=== PATIENT | female | born 1970 | race Caucasian/White ===

== ENCOUNTER 2016-08-22 15:04 | Emergency (ER) | payer MEDICAID ==
[~2016-08-22] VITALS: Ht 121.9 cm; Wt 90.5 kg
[2016-08-22 15:06] VITALS: Ht 121.9 cm; Wt 90.5 kg
--- NOTE | 2016-08-22 16:04 | ERD ---
ER Documentation Chief Complaint Date/Time DATE: 08/22/16 TIME: 16:01 Chief Complaint SENT HERE BY PMD FOR FURTHER EVALUATION HIGH GLUCOSE AND KETONES IN URINE HPI 45-year-old female otherwise healthy, no prior history of diabetes was sent in by her primary care physician for further evaluation of a glucose of 196 and positive ketones in the urine in the office just prior to arrival. The patient was going in for a physical examination, requesting a mammogram and she subsequently was found to have ketones in the urine. She has not had any dizziness, polyuria, polydipsia, nausea, vomiting, diarrhea or abdominal pain. ROS All systems reviewed and are negative except as per history of present illness. Medications Home Meds Active Scripts Cephalexin* (Keflex*) 500 Mg Capsule, 500 MG PO TID for 7 Days, CAP Prov:BALAJI RAMOS PA-C 08/22/16 PMhx/Soc Medical and Surgical Hx: pt denies Medical Hx, pt denies Surgical Hx Hx Alcohol Use: No Hx Substance Use: No Hx Tobacco Use: No Physical Exam Vitals Vital Signs Date Time Temp Pulse Resp B/P Pulse Ox O2 Delivery O2 Flow Rate FiO2 08/22/16 15:06 97.6 72 18 141/79 97 Physical Exam General: Well-developed, well-nourished. The patient appears in no acute distress. HEENT: Head is normocephalic, atraumatic. No scleral icterus. Pupils are equal , round, and reactive. Oral mucous membranes are moist. No pharyngeal erythema. Neck: Supple. Nontender. Lungs: Clear to auscultation. Normal air movement. Heart: Regular rate and rhythm. S1 and S2 are normal. No murmurs, gallops, or rubs. Abdomen: Soft, nontender, nondistended. Bowel sounds are normoactive. Extremities: No clubbing or cyanosis. Normal pulses. Moving extremities x 4. No weakness. Neurologic: Alert and oriented 3. No focal deficits. Skin: Normal turgor. No rash or lesions. Result Diagram: 08/22/16 1629 08/22/16 1629 Results 24 hrs Laboratory Tests Test 08/22/16 15:12 08/22/16 16:25 08/22/16 16:29 Bedside Glucose 196mg/dL 191mg/dL Anion Gap 16 Basophils # 0.010^3/ul Basophils % 0.2% Blood Urea Nitrogen 9mg/dl Calcium Level 9.2mg/dl Carbon Dioxide Level 28mmol/L Chloride Level 100mmol/L Creatinine 0.50mg/dl Eosinophils # 0.210^3/ul Eosinophils % 1.6% Glucose Level 201mg/dl Hematocrit 42.4% Hemoglobin 14.3g/dl Lymphocytes # 3.110^3/ul Lymphocytes % 28.3% Mean Corpuscular Hemoglobin 31.2pg Mean Corpuscular Hemoglobin Concent 33.8g/dl Mean Corpuscular Volume 92.3fl Mean Platelet Volume 9.1fl Monocytes # 0.510^3/ul Monocytes % 4.4% Neutrophils # 7.310^3/ul Neutrophils % 65.5% Nucleated Red Blood Cells # 0.010^3/ul Nucleated Red Blood Cells % 0.0/100WBC Platelet Count 88150^3/UL Potassium Level 4.2mmol/L Red Blood Count 4.5910^6/ul Red Cell Distribution Width 12.2% Sodium Level 140mmol/L Urine Bacteria OCCASIONAL Urine Bilirubin NEGATIVE Urine Clarity CLEAR Urine Color LT. YELLOW Urine Glucose NEGATIVE% Urine Hemoglobin TRACE Urine Ketones 15 Urine Leukocyte Esterase 1+ Urine Microscopic RBC 0-2/HPF Urine Microscopic WBC 10-25/HPF Urine Nitrite NEGATIVE Urine Specific [place] 1.010 Urine Squamous Epithelial Cells MODERATE Urine Total Protein NEGATIVE Urine Urobilinogen 0.2 E.U./dL Urine WBC Clumps OCCASIONAL Urine pH 5.5 White Blood Count 11.110^3/ul Procedures/MDM ED course: Patient was seen and evaluated, labs and urine were obtained. MDM: 45-year-old female comes in with elevated blood sugar as well as ketones and was seen in the clinic today per, she had blood work done here, she does have hyperglycemia however there is no evidence of acidosis. She does not have evidence of dehydration, is clinically well-appearing. This patient does have a urinary tract infection will be antibiotics for this, has been asked to increase hydration. She was given a copy of her labs and urine test results and has been asked to follow-up with a primary care doctor within the next week for recheck of her sugar that is fasting. Departure Diagnosis: Primary Impression: Hyperglycemia Additional Impression: UTI (urinary tract infection) Condition: BALAJI Kim PA-C Aug 22, 2016 16:04
[2016-08-22 17:06] LABS: BASOPHILS % 0.2 % (0.0-2.0); EOSINOPHILS # 0.2 10^3/ul (0.0-0.5); EOSINOPHILS % 1.6 % (0.0-7.0); HEMATOCRIT 42.4 % (37.0-47.0); HEMOGLOBIN 14.3 g/dl (12.0-16.0); LYMPHOCYTES # 3.1 10^3/ul (0.8-2.9); LYMPHOCYTES % 28.3 % (15.0-51.0); MEAN CORPUSCULAR HEMOGLOBIN 31.2 pg (29.0-33.0); MEAN CORPUSCULAR HGB CONC 33.8 g/dl (32.0-37.0); MEAN CORPUSCULAR VOLUME 92.3 fl (82.0-101.0); MEAN PLATELET VOLUME 9.1 fl (7.4-10.4); MONOCYTE # 0.5 10^3/ul (0.3-0.9); MONOCYTES % 4.4 % (0.0-11.0); NEUTROPHIL # 7.3 10^3/ul (1.6-7.5); NEUTROPHILS % 65.5 % (39.0-77.0); PLATELET COUNT 277 10^3/UL (140-440); RED BLOOD COUNT 4.59 10^6/ul (4.20-5.40); RED CELL DISTRIBUTION WIDTH 12.2 % (11.5-14.5); UNCORRECTED WBC 11.1 10^3/ul (4.8-10.8); WHITE BLOOD COUNT 11.1 10^3/ul (4.8-10.8)
[2016-08-22 17:11] LABS: POTASSIUM 4.2 mmol/L (3.5-5.1)
[2016-08-22 17:13] LABS: CREATININE 0.5 mg/dl (0.44-1.00)
[2016-08-22 17:14] LABS: CALCIUM 9.2 mg/dl (8.4-10.2)
[2016-08-22 17:18] LABS: ADD UMIC YES; URINE BILIRUBIN (Dip) NEGATIVE (NEGATIVE); URINE BLOOD (Dip) TRACE (NEGATIVE); URINE COLOR LT. YELLOW (YELLOW); URINE GLUCOSE (Dip) NEGATIVE (NEGATIVE); URINE KETONES (Dip) 15 (NEGATIVE); URINE LEUKOCYTE ESTERASE (Dip) 1+ (NEGATIVE); URINE NITRITE (Dip) NEGATIVE (NEGATIVE); URINE TOTAL PROTEIN (Dip) NEGATIVE (NEGATIVE); URINE UROBILINOGEN (Dip) 0.2 E.U./dL (0.1-1.0)
[2016-08-22 17:24] LABS: CONDITION 1
[2016-08-22 17:41] LABS: URINE RBCS 0-2 /HPF (0)
[2016-08-22 17:42] LABS: BACTERIA,URINE OCCASIONAL; SQUAMOUS EPITHELIAL CELL,UR MODERATE
[2016-08-22] MEDS ORDERED: CEPH-443 PO (17:47)
== END 2016-08-22 17:59 | disposition home or self-care (01) ==
LOC: FTE 15:04
DX: R73.9 Hyperglycemia, unspecified (principal); N39.0 Urinary tract infection, site not specified
CPT/HCPCS: 36415; 80048; 81001; 82962; 85025; Z7502; 81003; 99283